=== PATIENT | female | born 1980 | race Caucasian/White ===

== ENCOUNTER 2016-12-01 20:12 | Emergency (ER) | payer OTHER ==
[~2016-12-01] VITALS: Ht 165.1 cm; Wt 100.0 kg
[~2016-12-01 20:12] MED LIST: B/P MED; CHOLESTEROL MED; CYCL-259 PO; GABA300C PO; HYDR10TA4 PO; OXYC-223 PO; PNV1TABL11 PO; RIZA5TAB2 PO; SERT25TA3 PO; WARF1TAB PO
[2016-12-01] MEDS ORDERED: MORPHINE SULFATE 4 MG/ML, 1ML IVPush PRN (21:00)
[2016-12-01] MEDS ORDERED: ONDANSETRON 2MG/ML, 2ML IVPush ONE (21:00)
[2016-12-01] MEDS ORDERED: SODIUM CHLORIDE FLUSH 10ML SYR IVF ONE (21:00)
[2016-12-01] MEDS ORDERED: SODIUM CHLORIDE 0.9% 1,000ML IVBOLUS ONE (21:00)
[2016-12-01 21:27] LABS: BLOOD UREA NITROGEN 6 mg/dL (7-18)
[2016-12-01] MEDS ORDERED: HYDROmorphone 1 MG/ML, 1ML ONE (21:46)
[2016-12-01] MEDS ORDERED: ONDANSETRON ODT 4 MG ONE (21:46)
[2016-12-01] MEDS ORDERED: ONDANSETRON ODT 4 MG PO ONE (22:00)
[2016-12-01] MEDS ORDERED: HYDROmorphone 1 MG/ML, 1ML IM ONE (22:00)
[2016-12-01 23:18] VITALS: BP 115/76
== END 2016-12-01 23:22 | disposition home or self-care (01) ==
LOC: ED 23:21
DX: Z32.01 Encounter for pregnancy test, result positive (principal); R10.2 Pelvic and perineal pain; Z86.711 Personal history of pulmonary embolism; Z90.49 Acquired absence of other specified parts of digestive tract
CPT/HCPCS: 36415; 76801; 80048; 81003; 82040; 84702; 84703; 85025; 96372; 99285; J1170; Q0162

== ENCOUNTER 2017-01-25 19:25 | Emergency (ER) | payer OTHER ==
[~2017-01-25] VITALS: Ht 162.6 cm; Wt 106.1 kg
[2017-01-25 20:08] VITALS: BP 114/69
== END 2017-01-25 20:48 | disposition home or self-care (01) ==
LOC: ED 20:42
DX: O36.8130 Decreased fetal movements, third trimester, not applicable or unspecified (principal); Z3A.18 18 weeks gestation of pregnancy
CPT/HCPCS: 99284

== ENCOUNTER 2017-11-18 18:40 | Emergency (ER) | payer BC, OTHER ==
[~2017-11-18] VITALS: Ht 152.4 cm; Wt 110.0 kg
[~2017-11-18 18:40] MED LIST changes: -OXYC-223 PO; +OXYC-306 PO
[2017-11-18 19:21] LABS: BASOPHILS # (AUTO) 0.05 x10^3/uL (0-0.1); BASOPHILS % (AUTO) 1 % (0-1); EOSINOPHILS % (AUTO) 4 % (1-7); LYMPHOCYTES # (AUTO) 2.53 x10^3/uL (1-3.4); LYMPHOCYTES % (AUTO) 34 % (22-44); MD NO; MEAN CORPUSCULAR HEMOGLOBIN 30.1 pg (27.0-34.8); MEAN CORPUSCULAR HGB CONC 34.1 g/dL (32.4-35.8); MEAN CORPUSCULAR VOLUME 88.2 fL (80-100); MEAN PLATELET VOLUME 7.8 fL (7.4-10.4); MONOCYTES # (AUTO) 0.49 x10^3/uL (0.2-0.8); MONOCYTES % (AUTO) 7 % (2-9); NEUTROPHILS # (AUTO) 4.17 x10^3/uL (1.8-6.8); NEUTROPHILS % (AUTO) 55 % (42-75); PLATELET COUNT 367 x10^3/uL (130-400); RED BLOOD COUNT 5.52 x10^6/uL (3.82-5.3); RED CELL DISTRIBUTION WIDTH 14.1 % (9.6-15.2)
[2017-11-18 19:27] LABS: ALANINE AMINOTRANSFERASE 41 U/L (12-78); ALBUMIN 4.2 g/dL (3.4-5.0); ANION GAP 10 mmol/L (5-15); CALCIUM 9.7 mg/dL (8.5-10.1); CHLORIDE 109 mmol/L (98-107)
[2017-11-18 19:30] LABS: ALKALINE PHOSPHATASE 63 U/L (45-117); BILIRUBIN,TOTAL 0.8 mg/dL (0.2-1.0); CREATININE 1.18 mg/dL (0.55-1.02); TOTAL PROTEIN 8.1 g/dL (6.4-8.2)
[2017-11-18] MEDS ORDERED: SODIUM CHLORIDE FLUSH 10ML SYR IVF ONE (20:00)
[2017-11-18] MEDS ORDERED: SODIUM CHLORIDE 0.9% 1,000ML IVBOLUS ONE (20:00)
[2017-11-18] MEDS ORDERED: OMNIPAQUE 350 MG/ML, 100ML BOTTLE ONE (20:25)
[2017-11-18] MEDS ORDERED: KETOROLAC 30 MG/1 ML IVPush ONE (22:00)
[2017-11-18] MEDS ORDERED: KETOROLAC 30 MG/1 ML ONE (22:07)
[2017-11-18 22:22] VITALS: BP 135/88
== END 2017-11-18 22:27 | disposition home or self-care (01) ==
LOC: ED 22:21
DX: R09.1 Pleurisy (principal)
CPT/HCPCS: 36415; 71045; 71275; 80053; 85025; 85379; 93005; 96374; 99285; J1885; J7030; Q9967

== ENCOUNTER 2017-12-02 11:31 | Emergency (ER) | payer BC ==
[~2017-12-02] VITALS: Ht 165.1 cm; Wt 107.1 kg
[2017-12-02 12:19] LABS: MICROSCOPIC AUTO
[2017-12-02] MEDS ORDERED: HYDROcodone/APAP 5/325 TABLET ONE (12:50)
[2017-12-02 12:58] LABS: HCG UR SG 1.004 (1.003-1.030)
[2017-12-02] MEDS ORDERED: HYDROcodone/APAP 5/325 TABLET PO ONE (13:00)
[2017-12-02] MEDS ORDERED: CEFTRIAXONE 1,000 MG IM ONE (14:00)
[2017-12-02 14:22] VITALS: BP 122/89
== END 2017-12-02 14:25 | disposition home or self-care (01) ==
LOC: ED 14:20
DX: N30.90 Cystitis, unspecified without hematuria (principal); N20.0 Calculus of kidney; M19.90 Unspecified osteoarthritis, unspecified site; M79.7 Fibromyalgia; F43.10 Post-traumatic stress disorder, unspecified; Z90.49 Acquired absence of other specified parts of digestive tract; Z87.442 Personal history of urinary calculi; Z86.711 Personal history of pulmonary embolism
CPT/HCPCS: 74176; 81001; 81025; 96372; 99285; J0696

== ENCOUNTER 2018-04-04 09:43 | Emergency (ER) | payer SELFPAY ==
[~2018-04-04] VITALS: Ht 165.1 cm; Wt 110.0 kg
[2018-04-04] MEDS ORDERED: MECLIZINE CHEWABLE 25 MG TAB PO ONE (10:30)
[2018-04-04] MEDS ORDERED: MECLIZINE CHEWABLE 25 MG TAB ONE (10:39)
[2018-04-04 10:51] LABS: BASOPHILS # (AUTO) 0.03 x10^3/uL (0-0.1); BASOPHILS % (AUTO) 1 % (0-1); EOSINOPHILS # (AUTO) 0.22 x10^3/uL (0-0.4); EOSINOPHILS % (AUTO) 4 % (1-7); LYMPHOCYTES # (AUTO) 1.47 x10^3/uL (1-3.4); LYMPHOCYTES % (AUTO) 24 % (22-44); MD NO; MEAN CORPUSCULAR HEMOGLOBIN 29.7 pg (27.0-34.8); MEAN CORPUSCULAR HGB CONC 33.9 g/dL (32.4-35.8); MEAN CORPUSCULAR VOLUME 87.9 fL (80-100); MEAN PLATELET VOLUME 7.6 fL (7.4-10.4); MONOCYTES # (AUTO) 0.43 x10^3/uL (0.2-0.8); MONOCYTES % (AUTO) 7 % (2-9); NEUTROPHILS # (AUTO) 3.91 x10^3/uL (1.8-6.8); NEUTROPHILS % (AUTO) 65 % (42-75); PLATELET COUNT 239 x10^3/uL (130-400); RED BLOOD COUNT 4.78 x10^6/uL (3.82-5.3); RED CELL DISTRIBUTION WIDTH 13.7 % (9.6-15.2)
[2018-04-04 10:56] LABS: HCG UR SG 1.036 (1.003-1.030)
[2018-04-04 11:03] LABS: ALBUMIN 3.8 g/dL (3.4-5.0); ANION GAP 7 mmol/L (5-15); CALCIUM 9.2 mg/dL (8.5-10.1); CHLORIDE 113 mmol/L (98-107)
[2018-04-04 11:05] LABS: CREATININE 1.01 mg/dL (0.55-1.02)
[2018-04-04 13:00] LABS: MICROSCOPIC INDICATED
[2018-04-04 13:14] LABS: CULTURE INDICATED? NO
[2018-04-04 13:52] VITALS: BP 120/88
== END 2018-04-04 13:54 | disposition home or self-care (01) ==
LOC: ED 12:16
DX: R55 Syncope and collapse (principal); R42 Dizziness and giddiness
CPT/HCPCS: 36415; 70450; 80048; 81001; 81025; 82040; 85025; 93005; 99285

== ENCOUNTER 2018-05-28 11:04 | Emergency (ER) | payer SELFPAY ==
[~2018-05-28] VITALS: Ht 165.1 cm; Wt 115.4 kg
[2018-05-28 11:07] VITALS: BP 150/103
[2018-05-28] MEDS ORDERED: DEXAMETHASONE 4 MG TABLET PO ONE (11:30)
== END 2018-05-28 12:51 | disposition home or self-care (01) ==
LOC: ED 12:40
DX: J20.8 Acute bronchitis due to other specified organisms (principal); J04.0 Acute laryngitis
CPT/HCPCS: 71046; 99283

== ENCOUNTER 2018-06-21 10:57 | Emergency (ER) | payer OTHER ==
[~2018-06-21] VITALS: Ht 165.1 cm; Wt 113.0 kg
[2018-06-21 11:01] VITALS: BP 141/94
[2018-06-21] MEDS ORDERED: KETOROLAC 30 MG/1 ML ONE (12:05)
[2018-06-21] MEDS ORDERED: DEXAMETHASONE 4 MG TABLET ONE (12:05)
[2018-06-21] MEDS ORDERED: HYDROmorphone 2 MG/ML, 1ML ONE (12:07)
== END 2018-06-21 12:04 | disposition home or self-care (01) ==
LOC: ED 11:54
DX: K21.0 Gastro-esophageal reflux disease with esophagitis (principal); J04.0 Acute laryngitis
CPT/HCPCS: 87081; 87880; 99283

== ENCOUNTER 2019-06-07 15:44 | Emergency (ER) | payer OTHER ==
[~2019-06-07] VITALS: Ht 165.1 cm; Wt 123.8 kg
--- NOTE | 2019-06-07 16:26 | NUR ---
PT CAME IN CO OF [facility] FOR THE PAST 3 DAYS. APPETITE HAS BEEN GETTING WORSE. NO FEVER. FEELS LIKE SHES BEEN "HOT AND COLD". STATES "I ALWAYS FEEL LIKE I AM GOING TO VOMIT". FAMILY IS BEDSIDE. CALL LIGHT WITHIN REACH
[2019-06-07] MEDS ORDERED: ONDANSETRON ODT 4 MG PO ONE (16:30)
[2019-06-07] MEDS ORDERED: ONDANSETRON ODT 4 MG ONE (16:38)
--- NOTE | 2019-06-07 16:48 | NUR ---
PT RESTING IN ROOM. REPORTS IMPROVEMENT FROM [facility].
[2019-06-07 16:53] LABS: BASOPHILS # (AUTO) 0.09 x10^3/uL (0-0.1); BASOPHILS % (AUTO) 1 % (0-1); EOSINOPHILS # (AUTO) 0.27 x10^3/uL (0-0.4); EOSINOPHILS % (AUTO) 3 % (1-7); LYMPHOCYTES # (AUTO) 1.69 x10^3/uL (1-3.4); LYMPHOCYTES % (AUTO) 21 % (22-44); MD NO; MEAN CORPUSCULAR HEMOGLOBIN 29.5 pg (27.0-34.8); MEAN CORPUSCULAR VOLUME 89.3 fL (80-100); MEAN PLATELET VOLUME 7.4 fL (7.4-10.4); MONOCYTES # (AUTO) 0.55 x10^3/uL (0.2-0.8); MONOCYTES % (AUTO) 7 % (2-9); NEUTROPHILS # (AUTO) 5.59 x10^3/uL (1.8-6.8); NEUTROPHILS % (AUTO) 68 % (42-75); PLATELET COUNT 250 x10^3/uL (130-400); RED BLOOD COUNT 4.88 x10^6/uL (3.82-5.3); RED CELL DISTRIBUTION WIDTH 15.1 % (9.6-15.2)
[2019-06-07 16:56] LABS: MICROSCOPIC INDICATED
[2019-06-07 16:57] LABS: CULTURE INDICATED? YES
[2019-06-07 17:03] LABS: ALANINE AMINOTRANSFERASE 40 U/L (12-78); ALBUMIN 3.7 g/dL (3.4-5.0); ANION GAP 4 mmol/L (5-15); CALCIUM 8.6 mg/dL (8.5-10.1); CHLORIDE 109 mmol/L (98-107)
[2019-06-07 17:08] LABS: ALKALINE PHOSPHATASE 73 U/L (45-117); BILIRUBIN,TOTAL 0.5 mg/dL (0.2-1.0); TOTAL PROTEIN 7.2 g/dL (6.4-8.2)
--- NOTE | 2019-06-07 17:58 | NUR ---
PT RESTING IN HOSPITAL BED. NO REQUESTS
[2019-06-07 18:53] VITALS: BP 143/91
== END 2019-06-07 18:56 | disposition home or self-care (01) ==
LOC: ED 18:50
DX: R11.2 Nausea with vomiting, unspecified (principal); K21.9 Gastro-esophageal reflux disease without esophagitis; Z90.49 Acquired absence of other specified parts of digestive tract
CPT/HCPCS: 36415; 80053; 81001; 83690; 84703; 85025; 87086; 99283; Q0162

== ENCOUNTER 2019-08-10 06:11 | Emergency (ER) | payer OTHER ==
[~2019-08-10] VITALS: Ht 165.1 cm; Wt 123.2 kg
[~2019-08-10 06:11] MED LIST changes: +HYDR-2995 PO; -HYDR10TA4 PO
[2019-08-10] MEDS ORDERED: SODIUM CHLORIDE 0.9% 1,000ML IVBOLUS ONE (06:30)
[2019-08-10] MEDS ORDERED: SODIUM CHLORIDE FLUSH 10ML SYR IVF ONE (06:30)
[2019-08-10] MEDS ORDERED: ONDANSETRON 2MG/ML, 2ML IVPush ONE ×2 (06:30→10:00)
[2019-08-10 06:48] LABS: BASOPHILS # (AUTO) 0.03 x10^3/uL (0-0.1); BASOPHILS % (AUTO) 0 % (0-1); EOSINOPHILS # (AUTO) 0.26 x10^3/uL (0-0.4); EOSINOPHILS % (AUTO) 4 % (1-7); LYMPHOCYTES # (AUTO) 1.07 x10^3/uL (1-3.4); LYMPHOCYTES % (AUTO) 18 % (22-44); MD NO; MEAN CORPUSCULAR HEMOGLOBIN 29.9 pg (27.0-34.8); MEAN CORPUSCULAR HGB CONC 33.7 g/dL (32.4-35.8); MEAN CORPUSCULAR VOLUME 88.8 fL (80-100); MEAN PLATELET VOLUME 7.7 fL (7.4-10.4); MONOCYTES # (AUTO) 0.27 x10^3/uL (0.2-0.8); MONOCYTES % (AUTO) 4 % (2-9); NEUTROPHILS # (AUTO) 4.44 x10^3/uL (1.8-6.8); NEUTROPHILS % (AUTO) 73 % (42-75); PLATELET COUNT 243 x10^3/uL (130-400); RED BLOOD COUNT 5.04 x10^6/uL (3.82-5.3)
[2019-08-10 07:00] LABS: ALBUMIN 4.3 g/dL (3.4-5.0); ANION GAP 6 mmol/L (5-15); CALCIUM 9.4 mg/dL (8.5-10.1); CHLORIDE 109 mmol/L (98-107); CREATININE 1.06 mg/dL (0.55-1.02)
[2019-08-10] MEDS ORDERED: ONDANSETRON 2MG/ML, 2ML ONE ×2 (07:03→09:17)
--- NOTE | 2019-08-10 07:06 | NUR ---
Pt not in room at this time. Pt away on [facility]. Will come back to follow EDMD orders when pt returns to room.
[2019-08-10] MEDS ORDERED: ESCITALOPRAM OXALATE (07:52)
--- NOTE | 2019-08-10 07:52 | NUR ---
LATE NOTE ENTRY DUE TO PT CARE. Pt back to room on [facility]. Obtained vital signs, placed PIV, fluids in fusing per EMAR, medicaitons provided per EMAR. and pt connected to NIBP cuff and continous pulse ox monitor. Call light within reach. Pt states 2/10 RLQ pain at this time. Pt states she has her appendix. NADN. No other needs expressed. UA sent to lab. Pending lab and imaging results.
[2019-08-10 07:57] LABS: MICROSCOPIC NOT IND
[2019-08-10 07:58] LABS: CULTURE INDICATED? NO
[2019-08-10 09:21] VITALS: BP 162/93
[2019-08-10] MEDS ORDERED: OMNIPAQUE 350 MG/ML, 150 ML BOTTLE ONE (09:22)
--- NOTE | 2019-08-10 10:10 | NUR ---
Patient given discharge instructions and they have confirmed that they understand the instructions. Patient ambulatory with steady gait. Pt left with d/c paperwork, Rx, work note, and all personal belongings. No needs expressed at this time.
== END 2019-08-10 10:12 | disposition home or self-care (01) ==
LOC: ED 07:51
DX: R10.31 Right lower quadrant pain (principal); R11.2 Nausea with vomiting, unspecified; R19.7 Diarrhea, unspecified
CPT/HCPCS: 36415; 74177; 76830; 80048; 81003; 82040; 84703; 85025; 96361; 96374; 96376; 99285; J2405; J7030; Q9967

== ENCOUNTER 2019-12-04 09:51 | Emergency (ER) | payer OTHER ==
[~2019-12-04] VITALS: Ht 165.1 cm; Wt 120.0 kg
[~2019-12-04 09:51] MED LIST changes: +ESCITALOPRAM OXALATE; -WARF1TAB PO; +WARF1TAB2 PO
[2019-12-04 09:57] VITALS: BP 145/87
--- NOTE | 2019-12-04 10:18 | NUR ---
IN ROOM FOR EVAL. POC TO BREATHING TX AND STEROIDS. PT AGREES TO POC. PT PLACED ON 02 AND NIBP MONITORING. CALL LIGHT IN REACH
[2019-12-04] MEDS ORDERED: DEXAMETHASONE 4 MG TABLET PO ONE (10:30)
[2019-12-04] MEDS ORDERED: ALBUTEROL/IPRATROPIUM 2.5MG/0.5MG, 3 ML NPPB ONE (10:30)
[2019-12-04] MEDS ORDERED: ALBUTEROL/IPRATROPIUM 2.5MG/0.5MG, 3 ML ONE (10:36)
[2019-12-04] MEDS ORDERED: DEXAMETHASONE 4 MG TABLET ONE (10:43)
== END 2019-12-04 11:30 | disposition home or self-care (01) ==
LOC: ED 10:28
DX: J45.901 Unspecified asthma with (acute) exacerbation (principal); J70.5 Respiratory conditions due to smoke inhalation; R94.31 Abnormal electrocardiogram [ECG] [EKG]; K21.9 Gastro-esophageal reflux disease without esophagitis; Z90.49 Acquired absence of other specified parts of digestive tract; Z86.711 Personal history of pulmonary embolism
CPT/HCPCS: 93005; 94640; 99283

== ENCOUNTER 2020-02-03 14:10 | Emergency (ER) | payer OTHER ==
[~2020-02-03] VITALS: Ht 165.1 cm; Wt 126.0 kg
--- NOTE | 2020-02-03 15:01 | NUR ---
YEAST SUPERVISOR: PT CALLED FOR ROOM, IN RADIOLOGY
--- NOTE | 2020-02-03 15:07 | NUR ---
INVESTIGATIVE SHOPPER: PT TO ROOM FROM LOBBY, VIA W/C
[2020-02-03] MEDS ORDERED: KETOROLAC 30 MG/1 ML ONE (15:53)
[2020-02-03] MEDS ORDERED: DIAZEPAM 5 MG TABLET ONE (15:53)
[2020-02-03] MEDS ORDERED: DIAZEPAM 5 MG TABLET PO ONE (16:00)
[2020-02-03] MEDS ORDERED: KETOROLAC 30 MG/1 ML IM ONE (16:00)
[2020-02-03] MEDS ORDERED: OXYcodone/APAP 5/325MG TABLET PO ONE (16:30)
[2020-02-03] MEDS ORDERED: OXYcodone/APAP 5/325MG TABLET ONE (16:36)
[2020-02-03 16:38] VITALS: BP 133/77
--- NOTE | 2020-02-03 16:39 | NUR ---
PT STILL CO BACK PAIN, MEDICATED PER ORDERS.
--- NOTE | 2020-02-03 17:10 | NUR ---
Patient/Caregiver given discharge instructions and they have confirmed that they understand the instructions. Patient ambulatory with steady gait.
== END 2020-02-03 17:11 | disposition home or self-care (01) ==
LOC: ED 16:45
DX: S39.012A Strain of muscle, fascia and tendon of lower back, initial encounter (principal); M51.36 Other intervertebral disc degeneration, lumbar region; G89.29 Other chronic pain; J45.909 Unspecified asthma, uncomplicated; X58.XXXA Exposure to other specified factors, initial encounter; Y93.89 Activity, other specified; Y92.89 Other specified places as the place of occurrence of the external cause; Y99.8 Other external cause status
CPT/HCPCS: 72110; 96372; 99283; J1885

== ENCOUNTER 2020-03-12 13:10 | Emergency (ER) | payer OTHER ==
[~2020-03-12] VITALS: Ht 165.1 cm; Wt 124.0 kg
--- NOTE | 2020-03-12 14:10 | NUR ---
ASSUMED CARE OF PT AT THIS TIME FROM LOBBY. AMBULATORY TO ROOM WITH STEADY GAIT. 40 Y/O F PRESENTS STATING "I THINK I HAVE A SINUS INFECTION, I HAVE A LOT OF PRESSURE IN MY SINUSES AND IT'S GIVING ME A HEADACHE. I WAS HOPING TO GET A COVID SWAB TO BE SURE, I HAVEN'T BEEN AROUND ANYONE SICK BUT I JUST THOUGHT IT WOULD BE NICE TO KNOW IT'S NEGATIVE AND MY WORK SAID I NEED A TEST TO RETURN TO WORK." PT REPORTS TAKING OCT ALLERGY MEDS AND FLONASE WITHOUT RELIEF. DENIES COUGH, SOB, SORE THROAT, LOSS OF TASTE OR SMELL, N/V/D, CP, RECENT TRAVEL OR EXPOSURE TO COVID +PERSONS. CONT PULSE OX, BP MONITORS APPLIED. VSS. CALL LIGHT IN REACH. FALL PRECUATONS IN PLACE. AWAITING EVAL BY ERP. A&OX4. REPORTS 5/10 BODY ACHES/GUTIERREZ/SINUS PAIN
[2020-03-12] MEDS ORDERED: FLUT9.9S INH (14:40)
[2020-03-12] MEDS ORDERED: LORA-247 PO (14:40)
[2020-03-12] MEDS ORDERED: IBUP-1223 PO (14:40)
[2020-03-12] MEDS ORDERED: ESCI20TA PO (14:40)
[2020-03-12] MEDS ORDERED: MECL-101 PO (14:40)
[2020-03-12] MEDS ORDERED: BUSP30TA PO (14:40)
[2020-03-12] MEDS ORDERED: SUMA50TA4 PO (14:40)
--- NOTE | 2020-03-12 14:45 | NUR ---
PT AMBULATED TO RESTROOM WITH STEADY GAIT. CLEAN CATCH UA COLLECTED IF NEEDED. DR. DUCKWORTH AT BEDSIDE FOR EVAL.
--- NOTE | 2020-03-12 14:53 | NUR ---
DANIEL RN AT BEDSIDE TO [place]HELL SWAB PT PER ERP ORDER AND PT REQUEST FOR RETURN TO WORK
--- NOTE | 2020-03-12 14:58 | NUR ---
BEDSIDE REPORT AND TRANSFER OF CARE TO ALLEN RN AT THIS TIME.
[2020-03-12] MEDS ORDERED: KETOROLAC 30 MG/1 ML IM ONE (15:00)
--- NOTE | 2020-03-12 15:04 | NUR ---
report recieved from LISSY Siddiqui, this RN assuming care.
[2020-03-12] MEDS ORDERED: KETOROLAC 30 MG/1 ML ONE (15:09)
[2020-03-12 15:46] VITALS: BP 157/92
== END 2020-03-12 15:58 | disposition home or self-care (01) ==
LOC: ED 14:15
DX: R51.9 Headache, unspecified (principal); Z20.828 Contact with and (suspected) exposure to other viral communicable diseases; K21.9 Gastro-esophageal reflux disease without esophagitis; J45.909 Unspecified asthma, uncomplicated; M79.7 Fibromyalgia; Z90.49 Acquired absence of other specified parts of digestive tract
CPT/HCPCS: 36415; 87635; 96372; 99283; J1885